=== PATIENT | female | born 1975 | race African-American/Black ===

== ENCOUNTER 2024-06-23 20:06 | Emergency (ER) | payer OTHER ==
[~2024-06-23] VITALS: Ht 167.6 cm; Wt 80.0 kg
[2024-06-23 20:09] VITALS: O2SAT 99
[2024-06-23] MEDS: ACETAMINOPHEN 325MG TABLET PO STA (21:09)
[2024-06-23 21:10] LABS: BASOPHILS % 0.6 % (0.0-2.0); EOSINOPHILS % 3.8 % (0.0-5.0); HEMATOCRIT. 35.5 % (36.0-48.0); HEMOGLOBIN. 11.7 g/dL (12.0-16.0); LYMPHOCYTES % 23.3 % (20.0-50.0); MEAN CORPUSCULAR HEMOGLOBIN 26.4 pg (28.0-32.0); MEAN CORPUSCULAR VOLUME 80.1 fL (81.0-99.0); MEAN PLATELET VOLUME 8.6 fl (7.4-10.4); MONOCYTES % 8.5 % (2.0-8.0); NEUTROPHILS % 63.8 % (40.0-76.0); PLATELET 299 x1000/uL (130-400); RED BLOOD CELL COUNT 4.43 mill/uL (4.2-5.4); RED CELL DISTRIBUTION WIDTH 15.8 % (11.6-14.6); WHITE BLOOD COUNT 9.1 x1000/uL (4.5-11.0)
[2024-06-23 21:24] LABS: CHLORIDE 105 mEq/L (98-107); SODIUM 143 mEq/L (136-145)
[2024-06-23 21:25] LABS: CARBON DIOXIDE 27 mEq/L (21-32)
[2024-06-23 21:26] LABS: CALCIUM 9.5 mg/dL (8.7-10.4)
[2024-06-23 21:30] LABS: CREATININE 1.2 mg/dL (0.6-1.0); GLUCOSE 102 mg/dL (70-105); UREA NITROGEN BLOOD 11 mg/dL (9-23)
[2024-06-23 21:43] LABS: TROPONIN I HIGH SENSITIVITY < 4 ng/L (3.0-34)
[2024-06-23 23:23] VITALS: BP 150/84; PULSE 100; RESP 18; TEMP 36.8; O2SAT 99
== END 2024-06-23 23:26 | disposition home or self-care (01) ==
LOC: ER 20:06
DX: R07.89 Other chest pain (principal)
CPT/HCPCS: 36415; 71045; 80048; 84484; 85025; 93005; 99285